=== PATIENT | male | born 1940 | race Caucasian/White ===

== ENCOUNTER 2017-10-12 01:09 | Emergency (ER) | payer OTHER ==
[~2017-10-12] VITALS: Ht 170.2 cm; Wt 125.0 kg
[2017-10-12] MEDS ORDERED: CARD120C4 PO (02:02)
[2017-10-12] MEDS ORDERED: DIAZ5TAB PO (02:02)
[2017-10-12 02:04] VITALS: BP 123/72; PULSE 70; RESP 16; TEMP 98; O2SAT 95
--- NOTE | 2017-10-12 03:29 | PD ---
HPI Chief Complaint: Alcohol/Drug Intoxication Time Seen by Provider: 03:27 Travel History International Travel<30 days: No Contact w/Intl Traveler<30days: No Traveled to known affect area: No History of Present Illness HPI 77-year-old male arrives to the ER as [place]. He is not intoxicated on his front yard. He reports drinking vodka. He denies suicidal or homicidal ideation. Location generalized. Timing constant. PFSH Past Medical History Anxiety: Yes Diminished Hearing: No Hypertension: Yes Tetanus Vaccination: Unknown Influenza Vaccination: No Past Surgical History Surgical History: Unable to Obtain Social History Alcohol Use: Yes Tobacco Use: No Substance Use: No Allergies-Medications (Allergen,Severity, Reaction): Coded Allergies: No Known Allergies (Unverified , 10/12/17) Reported Meds & Prescriptions Reported Meds & Active Scripts Active Reported Diazepam 5 Mg Tab 5 Mg PO TID PRN Cardizem CD 24 HR (Diltiazem CD 24 HR) 120 Mg Caper 160 Mg PO DAILY Review of Systems Except as stated in HPI: all other systems reviewed are Neg Physical Exam Narrative GENERAL: 77-year-old male EtOH on breath SKIN: Warm and dry. HEAD: Atraumatic. Normocephalic. EYES: Pupils equal and round. No scleral icterus. No injection or drainage. ENT: No nasal bleeding or discharge. Mucous membranes pink and moist. NECK: Trachea midline. No JVD. CARDIOVASCULAR: Regular rate and rhythm. RESPIRATORY: No accessory muscle use. Clear to auscultation. Breath sounds equal bilaterally. GASTROINTESTINAL: Abdomen soft, non-tender, nondistended. Hepatic and splenic margins not palpable. MUSCULOSKELETAL: Extremities without clubbing, cyanosis, or edema. No obvious deformities. NEUROLOGICAL: Awake and alert. No obvious cranial nerve deficits. Motor grossly within normal limits. Five out of 5 muscle strength in the arms and legs. Normal speech. PSYCHIATRIC: EtOH on breath. Data Data Last Documented VS Vital Signs Date Time Temp Pulse Resp B/P (MAP) Pulse Ox O2 Delivery O2 Flow Rate FiO2 10/12/17 02:04 98.0 70 16 123/72 (89) 95 MDM Medical Decision Making Medical Screen Exam Complete: Yes Emergency Medical Condition: Yes Medical Record Reviewed: Yes Differential Diagnosis Alcohol intoxication, toxic alcohol ingestion, drug abuse Narrative Course Patient's intoxicated with alcohol. He'll be observed here until time of clinical sobriety is observed. Diagnosis Primary Impression: Alcohol intoxication Qualified Codes: F10.929 - Alcohol use, unspecified with intoxication, unspecified Referrals: [facility] days Disposition: 01 DISCHARGE HOME Condition: Stable Shailesh Berry MD Oct 12, 2017 03:29
[2017-10-12 07:00] VITALS: BP 128/61; PULSE 73; RESP 18; O2SAT 98
== END 2017-10-12 08:02 | disposition home or self-care (01) ==
LOC: NEPC 01:09
DX: F10.929 Alcohol use, unspecified with intoxication, unspecified (principal)
CPT/HCPCS: 99281